=== PATIENT | male | born 1955 | race Caucasian/White ===

== ENCOUNTER 2019-11-28 14:31 | Emergency (ER) | payer MEDICARE, MEDICAID, SELFPAY ==
[2019-11-28 14:43] VITALS: BMI 25.0
--- NOTE | 2019-11-28 14:44 | XR_ITS ---
WS: [id number] XR hand RT min 3V* 44217 REASON FOR EXAM: PAIN/SWELLING FINDINGS: Degenerate changes of the distal interphalangeal joints are seen. There is no definite fractures identified involving the hand. There is soft tissue swelling. XR/XR hand RT min 3V* [id number] IMPRESSION: Soft tissue swelling of the hand Degenerate changes of the distal interphalangeal joints.
[2019-11-28 14:47] VITALS: BP 119/70; PULSE 102; RESP 18; TEMP 36.7; O2SAT 98
--- NOTE | 2019-11-28 14:50 | ED_ITS ---
Entered by Lisseth Casey, acting as scribe for Lizz Martin Nov 28, 2019 14:31 HPI - Extremity Problem General: Chief complaint: Extremity Injury, Upper Stated complaint: right hand swelling/pain Time Seen by Provider: 11/28/19 14:43 Source: patient and RN notes reviewed Mode of arrival: ambulatory Limitations: no limitations History of Present Illness: HPI Narrative: 64 yo male presents to ED with complaints of R index finger pain. The patient states he hyperextended his R index finger while lifting wire yesterday. He has pain and swelling at his 1st MCP joint. MD Complaint: extremity pain and extremity swelling Onset (ago): day(s) (1) Pain Consistency: constant Location: right (index finger) Quality: aching Radiation: none Relieving factors: nothing Exacerbating factors: range of motion Associated symptoms: Reports no associated symptoms; Deny chest pain, fever(s) or rash Review of Systems General: Reports: other (negative unless marked) Const: Denies: fever, chills, body aches, fatigue, malaise or diaphoresis Eyes: Denies: change in vision or blurry vision ENMT: Denies: throat pain, painful swallowing, hoarseness, ear pain, ear discharge, Change in hearing or nasal discharge Card: Denies: chest pain, palpitations, irregular heart rhythm, syncope, pre- syncope, shortness of breath on exertion or shortness of breath when lying down Resp: Denies: shortness of breath, productive cough, non-productive cough, wheezing, coughing up blood or chest congestion GI: Denies: abdominal pain, nausea, vomiting, vomiting blood, coffee grounds in vomit, diarrhea, constipation, cramping, blood in stool or black tarry stool : Denies: flank pain, difficulty urinating, painful urination, urinary frequency, urinary urgency, decreased urine ouput, urinary incontinence or blood in urine Musc: Denies: neck pain, back pain, joint swelling, joint warmth or joint stiffness Skin/Breast: Denies: rash, skin tenderness or yellow skin Neuro: Denies: headache, numbness in extremities, weakness in extremities, changes in sensation, lack of coordination, difficulty walking, dizziness, vertigo or confusion Endo: Denies: excessive thirst, tired all the time, cold intolerance, excessive sweating, flushing or hot flashes Manoj/Lymph: Denies: easy bruising, easy bleeding, petechiae or enlarged lymph nodes All/Imm: Denies: hives, throat swelling, tongue swelling, facial swelling or acute wheezing PFSH ED PFSH: Social History Smoking and tobacco status: former smoker Physical Exam Const: COMMON NORMALS: no apparent distress, oriented x3, no limitations, healthy appearing and well nourished EXAM LIMITATIONS: no altered mental status GENERAL APPEARANCE: cooperative, well kempt and well developed ORIENTATION/CONSCIOUSNESS: Yes awake HENMT: COMMON NORMALS: normocephalic, head/scalp atraumatic, hearing grossly normal bilaterally, external ears normal, EAC's normal, external nose normal and moist oral mucous membranes HEAD & SCALP: normal to inspection, normocephalic and atraumatic FACE & SINUS: normal facial exam and face symmetric NOSE: external nose normal and nares normal EXTERNAL EAR: Yes external ears normal EXTERNAL AUDITORY CANAL: EAC's normal MOUTH: oral and palatal mucosa normal and tongue normal Eye: COMMON NORMALS: PERRL, EOMs intact bilaterally, conjunctivae normal and no scleral icterus GENERAL EYE: normal appearance of both eyes and normal light reflex CONJUNCTIVA: Yes conjunctivae normal SCLERA: sclerae normal CORNEA: Yes corneas normal PUPIL: Yes PERRL DIRECT OPHTHALMOSCOPY: Yes normal light reflex Neck/C-Spine: COMMON NORMALS: full ROM, no lymphadenopathy, supple, no meningeal signs and no JVD GENERAL: Yes normal visual inspection and Yes trachea midline CERVICAL SPINE: Yes cervical ROM normal Chest: COMMONS NORMALS: inspection of chest normal and palpation of chest normal Resp: COMMON NORMALS: normal respiratory effort, no retractions, no use of accessory muscles and clear to auscultation bilaterally EFFORT & INSPECTION: Yes able to speak in complete sentences AUSCULTATION: clear to auscultation bilaterally Cardio: COMMON NORMALS: no JVD, regular rate, regular rhythm, S1 normal heart sound, S2 normal heart sound, no gallops, no clicks, no murmurs and no rub JUGULAR VENOUS DISTENTION: no JVD RATE: regular rate RHYTHM: regular rhythm HEART SOUNDS: S1 normal and S2 normal GI: COMMON NORMALS: soft to palpation, non-tender, no hepatosplenomegaly and no masses INSPECTION: Yes normal to inspection PALPATION: Yes soft and Yes no hepatosplenomegaly : COMMON NORMALS: Yes no CVA tenderness BLADDER/KIDNEY EXAM: Yes no CVA tenderness Back/Pelvis: COMMON NORMALS: no CVA tenderness, thoracic and lumbar spine normal to inspection, no thoracic nor lumbar tenderness and thoraco-lumbar ROM normal Extremity: COMMON NORMALS: normal to inspection, full ROM, normal capillary refill, no joint enlargement, no clubbing, cyanosis or edema and no calf tenderness RIGHT UPPER EXTREMITY: Yes hand & digits (pain and swelling at 1st MCP joint, no ligamentous or joint laxity or instability.) Neuro: COMMON NORMALS: oriented x3, CN's II-XII intact bilaterally, moves all extremities, no focal motor deficits and no sensory deficits noted MENINGEAL SIGNS: Yes no meningeal signs Psych: COMMON NORMALS: mental status grossly normal, thought process normal, cooperative, affect normal, speech normal and activity/motor behavior normal APPEARANCE: Yes well kempt SPEECH: Yes normal speech THOUGHT PROCESS: normal thought process Skin: COMMON NORMALS: no rashes or lesions noted, skin turgor normal, no az dice, no petechiae and no mottling GENERAL SKIN EXAM: no rashes or lesions noted and turgor normal Course Vital Signs: Vital signs: Vital Signs Temperature 98.0 F 11/28/19 14:47 Pulse Rate 76 11/28/19 15:27 Respiratory Rate 18 11/28/19 15:27 Blood Pressure 136/84 11/28/19 15:27 Pulse Oximetry 97 11/28/19 15:27 MDM - Extremity (Nontraumatic) MDM Narrative: Medical decision making narrative: Joni is a 64-year-old male who comes in after he injured his right hand. X-rays did not reveal any evidence of fracture, dislocation or avulsion fracture. He will follow-up with his doctor if pain persist but he states he just wanted to be certain he states is already feeling better but as the pain persisted that is what concerned him. Imaging Data^: Xray Ortho: My impression: Right hand -no acute fractures, dislocations or avulsions. Radiologist's impression: [address] [place] [address] XRay Report Signed Patient: Joni Juarez #: [id number] : 3Acct#:[id number] Age/Sex: 64 / MADM Date: 11/28/19 Loc: ERRoom/Bed: Attending Dr: Ordering Provider/Ordering MD: Lizz Martin DO Date of Service: 11/28/19 Procedure(s): XR hand RT min 3V* [id number] Accession Number(s): [id number] Report Number: [id number] WS: [id number] XR hand RT min 3V* [id number] REASON FOR EXAM: PAIN/SWELLING FINDINGS: Degenerate changes of the distal interphalangeal joints are seen. There is no definite fractures identified involving the hand. There is soft tissue swelling. XR/XR hand RT min 3V* [id number] IMPRESSION: Soft tissue swelling of the hand Degenerate changes of the distal interphalangeal joints. Dictated By:Jackson Magallon DO Signed By:Jackson Magallon DOSigned Date/Time:11/28/19 1459 DD/ Discharge Plan Discharge Patient Disposition: Home, Self-Care Clinical Impression: Finger sprain Qualifiers: Encounter type: initial encounter Finger: index finger Sprain of finger site: metacarpophalangeal joint Laterality: right Qualified Code(s): S63.650A - Sprain of metacarpophalangeal joint of right index finger, initial encounter Condition: Stable Prescriptions: No Action lisinopril 20 mg tablet 20 mg PO DAILY RF: 0 paroxetine HCl 20 mg tablet 20 mg PO DAILY RF: 0 naproxen 500 mg tablet 500 mg PO DAILY RF: 0 Discharge Orders: Discharge Order (Routine); Ordered 11/28/19 Ordered By: Lizz Martin Referrals: Joni Villagomez MD [Primary Care Provider] - 4-7 days Discharge Diet: Advance as tolerated Discharge Activity: Increase activity as tolerated Patient Instructions: Hand Sprain (ED) Activity Restrictions/Additional Instructions: Please return to the ER immediately for any of the signs or symptoms listed on your discharge instruction sheets, worsening/changing of your symptoms, you are not getting better as quickly as expected, or for ANY other cause or concerns. Take Tylenol and Motrin as needed at home for pain. Discharge Date/Time: 11/28/19 15:28 Coding Level of Care Code ED Primary Care Nurse for Chg Fwd Exam Comprehensive The documentation recorded by the scribeCarmela Valerie R, accurately reflects the service I personally performed and the decisions made by me, Lizz Martin Nov 28, 2019 14:31
[2019-11-28 15:27] VITALS: BP 136/84; PULSE 76; RESP 18; O2SAT 97
== END 2019-11-28 15:28 | disposition home or self-care (01) ==
PROVIDERS: Emergency Provider Emergency Medicine; Family Provider Family Medicine; PCP Family Medicine
DX: S63.641A Sprain of metacarpophalangeal joint of right thumb, initial encounter (principal); Z87.891 Personal history of nicotine dependence; X50.0XXA Overexertion from strenuous movement or load, initial encounter
CPT/HCPCS: 12345; 73130; 99281; 99282

== ENCOUNTER 2022-06-27 13:25 | Outpatient (CLI) | payer MEDICARE, MEDICAID, SELFPAY ==
--- NOTE | 2022-06-27 13:34 | USCV_ITS ---
LarryJoni Age: 67 Gender: M : 1955 Exam Date: 06/27/2022 14:10 Ordering Phys: Joni Villagomez MD Technologist: Al Ely Post Partum Nurse Exam Location: [facility] [place]_ Indication: cladication RIGHT LEFT Brachial 143.00 mmHg Brachial 157.00 mmHg Pressure (mmHg) Waveform Pressure (mmHg) Waveform 87.00 ASSOCIATE PROFESSOR OF MEDICINE 88.00 71.00 DPA 75.00 0.55 Ankle/Brachial Index 0.56 84.00 Pre-Exercise Toe Pressure 87.00 0.54 Pre-Exercise Toe/Brachial Index 0.55 FINDINGS Resting ASHWINI 0.56 on the left and 0.55 on the right Resting TBI of 0.54 on the right and 0.55 on the left CONCLUSIONS Abnormal resting ABIs and TBIs bilaterally, suggesting moderately severe peripheral arterial disease. Dr Rakan Singh MD [facility] (Electronically Signed) Final Date: 28 June 2022 20:40 S
== END 2022-06-27 13:26 | disposition home or self-care (01) ==
LOC: RAD 13:26
PROVIDERS: PCP Family Medicine; Visit Provider Family Medicine
DX: I73.9 Peripheral vascular disease, unspecified (principal)
CPT/HCPCS: 93922

== ENCOUNTER → 2022-09-06 12:04 | Outpatient (BNVA) | payer MEDICARE, MEDICAID, SELFPAY | PROVIDERS: PCP Family Medicine; Visit Provider Internal Medicine | DX: I73.9 Peripheral vascular disease, unspecified (principal); I10 Essential (primary) hypertension; Z87.891 Personal history of nicotine dependence | CPT/HCPCS: 99204 ==

== ENCOUNTER 2022-09-14 14:00 | Observation (INO) | payer MEDICARE, MEDICAID, SELFPAY ==
[2022-09-14] VITALS (18 sets, daily range): BP systolic 119–157; BP diastolic 66–91; PULSE 65–96; RESP 8–25; O2SAT 88–98; BMI 27.2
--- NOTE | 2022-09-14 06:00 | XACV_ITS ---
Ht: 170 cm Wt: 79 kg BSA: 1.95 m2 Gender: Male : 1955 Exam Type: Invasive Peripheral Vascular Procedure(s): Procedure Description: Peripheral Cath Diagnostic Procedure Procedure Description: Abdominal aortic angiography Exam Priority: Routine Abdominal Diagnostic Findings Distal abdominal aorta: Occluded with only collateral blood supply to the legs. Lower Extremity Diagnostic Findings INDICATION: Severe lifestyle limiting claudication. Significantly decreased ABIs. Right lower extremity findings: Right common iliac artery: Occluded. Right external iliac artery: Patent. Reconstitutes via collaterals. Right common femoral artery: Patent. Right profunda artery: Patent. Right SFA: Patent. Right popliteal artery: Patent. Right TP segment: Patent. Right anterior tibial artery: Patent. Right peroneal artery: Patent. Right posterior tibial artery: Patent.. Left lower extremity findings: Left common iliac artery: Occluded Left external iliac artery patent. Reconstitutes via collaterals. Left common femoral artery balloon. Left profunda artery: Patent Left SFA: Patent Left popliteal artery: Patent Left TP segment: Patent Imaging below the knee is limited however appears to have at least two-vessel runoff.. Conclusions Patient has totally occluded distal abdominal aorta and occluded bilateral common iliac arteries. Reconstitution of flow through collaterals. Recommendations We will refer patient to vascular surgery for endovascular versus open surgical revascularization procedure evaluation. Continue current medications. Outpatient follow-up in 4 weeks. Access Site Site: Right Femoral artery Sheath Size: 6 Fr Hemost... Method: Manual Compression Hemost... Success: Successful Site: Right Radial artery Sheath Size: 6 Fr Hemost... Method: TR Band Hemost... Success: Successful Procedure Details Findings Procedure Consent Obtained. Admit Source: Out Patient. Pre-Procedure Time Out. Identified patient by full name and date of as verbalized by the patient/guarantor. Does the consent match the physician's order: Yes. Accurate & Complete Informed Consent: Yes. Inpatient/Outpatient History & Physical on Chart: Yes. If H&P is completed, is and addenduem needed: No; If yes, is the addendum complete: N/A. Visualize and Verify Site with Patient/Guarantor: N/A. Relevant Radiology Images available: Yes. The risks, benefits, and alternatives of sedation and/or procedure were discussed by physician. The patient agrees to continue. Procedure started. Current diagnosis:Claudication/PVD. Physician notified. Baseline sample Acquired. HR: 68 BPM. bilateral groins was prepped with chloroprep then draped in the usual sterile fashion. PERRLA. Strong, equal hand underbaster bilaterally. Lungs clear x 5 lobes. Physician arrived. Physician scrubbed in. Time out performed with cath team. Lidocaine 1% infiltrated to the right groin. Ultrasound being used to assist in access. Arterial access obtained with micropuncture set. Microdialtor in. Hand injection through dialator. Glidewire in through microdilator. Microdialtor out. Seeker catheter in over wire. Seeker catheter out over glidewire. Seeker catheter in over wire. Glidewire out. Hand injection performed. Hand injection in DSA. Seeker out. Power injection through sheath in DSA. 5ml/sec for a total of 10 mls. Right leg arteriogram with runoff performed @ 10 mL/sec for a total of 30 mL. Hand injection through the sheath. right radial was prepped with chloroprep then draped in the usual sterile fashion. IV Site on Arrival: 20 gauge in the right anticubital. IV Fluids: 0.9% NaCl at KVO. 0 mL infused prior to clinical laboratory director. Pre Procedural Pulses: bilateral dorsalis pedis was Doppled. Pre Procedural Pulses: bilateral posterior tibial was Doppled. Pre Procedural Pulses: bilateral radial was 2+. Lidocaine 1% infiltrated to the right radial. Arterial access obtained. 125 cm 5Fr Pigtail catherter inserted over the standard wire. Abdominal aortogram performed in AP @ 10 mL/sec for a total of 30 mL. Catheter removed over the standard wire. A TR Band was successful obtaining hemostatsis at the Right Radial artery insertion site. A Manual Compression was successful obtaining hemostatsis at the Right Femoral artery insertion site. Post Procedure: Pulses reassessed and unchanged. PERRLA. Strong, equal hand underbaster bilaterally. No VTE prophylaxis required. Medication's Wasted: Nitro = 49.8 mg. Medication's Wasted: Lidocaine 1% = 1 mL. Medication's Wasted: Heparin = 1000 units. Total IV fluids: 73 mL. Post-op diagnosis: occluded distal abdominal aorta, occleded bilateral common illiacs. Complications: none. Estimated blood loss: 5mL-10mL. Responsiveness - Normal response to verbal stimuli; alert and oriented, PERRLA. Airway - Unaffected, no intervention required; spontaneous ventilation. Circulation: W/N/L, pulses unchanged. Nausea/Vomiting: No. Procedure completed. Patient transferred by bed to CPRU. Vital chart was stopped. Procedure Medications Start: 7:58 AM Stop: 7:58 AM Medication: Versed Amount: 1 mg Route: I.V. Start: 7:58 AM Stop: 7:58 AM Medication: Fentanyl Amount: 50 mcg Route: I.V. Start: 8:37 AM Stop: 8:37 AM Medication: Versed Amount: 1 mg Route: I.V. Start: 8:37 AM Stop: 8:37 AM Medication: Fentanyl Amount: 50 mcg Route: I.V. Start: 8:47 AM Stop: 8:47 AM Medication: Nitrogylcerin Amount: 200 mcg Route: I.A. I, the attending physician, have reviewed and verified all procedure medications. Yes, all medications given per verbal order History/Risk Factors Hypertension: Yes Dyslipidemia: No Peripheral Arterial Disease (PAD): Yes Obesity: No Tobacco Use: Former Prior Interventions PCI: No CABG: No Valve Surgery: No Report Signatures Finalized by Troy Matthew MD on 09/21/2022 09:53 AM
[2022-09-14] MEDS: diphenhydrAMINE 50 mg Capsule PO (06:27)
[2022-09-14 06:35] LABS: Basophils % 0.4 %; Eosinophils # 0.3 10^3/uL (0.0-0.8); Hematocrit 41.9 % (42.0-52.0); Hemoglobin 13.8 g/dL (11.7-16.6); Lymphocytes # 2.5 10^3/uL (0.8-4.8); Lymphocytes % 31.3 %; Mean Corpuscular HGB Conc 32.9 g/dL (30.0-36.0); Mean Corpuscular Hemoglobin 30.5 pg (28.0-34.0); Mean Corpuscular Volume 92.5 fl (80-94); Mean Platelet Volume 11.5 fL (7.4-10.4); Monocytes # 0.7 10^3/uL (0.2-0.9); Neutrophils # 4.36 10^3/uL (1.8-7.7); Nucleated Red Blood Cells % 0 %; Platelet Count 146 10^3/cmm (130-400); Red Blood Count 4.53 10^6/uL (4.1-5.3); Red Cell Distribution Width 13.2 % (12.1-15.1); White Blood Count 7.9 10^3/uL (4.0-10.0)
[2022-09-14 07:45] LABS: Anion Gap 19.9 (5-19); Blood Urea Nitrogen 21 mg/dL (8-23); Calcium 10.1 mg/dL (8.5-10.5); Carbon Dioxide 19 mmol/L (22-29); Chloride 105 mmol/L (98-107); Glomerular Filtration Rate 50.2 mL/min (90-130); Glucose 129 mg/dL (65-115); Osmolality Calculated 295 mOsm/kg (285-295); Potassium 3.9 mmol/L (3.5-5.1); Sodium 140 mmol/L (136-145)
--- NOTE | 2022-09-14 08:00 | W.PM.OPSUD ---
Surgery/Procedure H&P Update DATE OF PROCEDURE: September 14, 2022 DATE H&P PERFORMED: 09/06/22 H&P UPDATE INFORMATION: I have reviewed H&P completed within last 30 days, I have examined patient prior to procedure and No changes to prior documentation PREOP DIAGNOSIS: Lifestyle limiting claudication PRIMARY INDICATION FOR PROCEDURE: Lifestyle limiting claudication PLANNED PROCEDURE: Operation Date: 09/14/22 07:00 Proposed Procedures p perip angiogram 27306,I73.9(Not Applicable) - Troy Matthew M.D Possible percutaneous coronary intervention PATIENT REASSESSED PRIOR TO SEDATION, WITH NO CHANGE NOTED: Yes PHYSICAL EXAM: alert, oriented x 3, clear to auscultation bilaterally and regular rate & rhythm AIRWAY EVAL/ANESTHESIA PLAN: normal airway, ASA III, Local Anesthesia, Risks, benefits & alternatives of sedation and/or procedure discussed and Patient agrees to continue as planned ADDITIONAL INFORMATION: Moderate sedation
--- NOTE | 2022-09-14 11:00 | PC.NURSE ---
Around 1100: Removed TR Band from patients right wrist. No drainage or hematoma noted. Cleaned around puncture site with soap and water, covered puncture site with band-aid. Vitals stable. No c/o of pain or discomfort. Dsg to patients right groin clean, dry, et intact. No drainage or hematoma noted. All needs met, will continue to monitor.
== END 2022-09-14 15:43 | disposition home or self-care (01) ==
LOC: CSU 14:04
PROVIDERS: Admitting Provider Internal Medicine; PCP Family Medicine; Visit Provider Internal Medicine
DX: I73.9 Peripheral vascular disease, unspecified (principal); I74.09 Other arterial embolism and thrombosis of abdominal aorta; I74.5 Embolism and thrombosis of iliac artery; I10 Essential (primary) hypertension; Z87.891 Personal history of nicotine dependence
CPT/HCPCS: 36415; 75625; 75716; 80048; 85025; 96360; 99152; 99153; C1769; C1887; C1894; G0378; J1644; J2250; J3010; J3490; J7030; Q0163; Q9967

== ENCOUNTER 2023-03-01 13:35 | Emergency (ER) | payer MEDICARE, MEDICAID, SELFPAY ==
[2023-03-01 13:36] VITALS: BMI 25.8
[2023-03-01 13:42] VITALS: BP 123/73; PULSE 111; RESP 16; TEMP 36.7; O2SAT 98
--- NOTE | 2023-03-01 13:49 | CT_ITS ---
WS: [id number] CTA ABDOMINAL AORTA WITH RUNOFF TECHNIQUE: Contrast enhanced CTA of the abdominal aorta with bilateral lower extremity runoff. Multip lanar reformatted images were obtained. MIP reformats were also reviewed. CLINICAL INFORMATION: aortic graft - abd pain radiating into back COMPARISON: None. DLP: 564.[address] scans at [facility] use at least one of these dose optimization techniques: automated e xposure control; mA and/or kV adjustment per patient size (includes targeted exams where dose is matc hed to clinical indication); or iterative reconstruction. FINDINGS: Complete occlusion of the infrarenal abdominal aortic graft just below the takeoff of the r enal arteries. Chronic atrophy of the LEFT kidney. RIGHT renal artery appears patent. Normal RIGHT re nal enhancement. Celiac and SMA are patent. Recent postoperative changes reported aortofemoral bypass graft. Graft is occluded at the origin. Occlusion of both bypass limbs. [place] aorta is occluded. Small fluid collect ion along the inferior margin of the bypass graft at the L5 level likely postoperative. Residual flow in both lower extremities due to collateral reconstitution. Collateral flow involving t he inferior epigastric and iliolumbar collaterals. Prominent vascularity in the mid mesentery due to mesenteric collaterals. Lung bases are well aerated. Diffuse heterogeneous liver enhancement. Portal vein and splenic vein appear patent. Common bile duct dilatation measuring 9.3 mm. Mild intrahepatic biliary ductal dilatation. Mild pancreatic ductal dilatation. Pancreatic Calcifications. Low-attenuation lesion in the pancreas measuring 13 mm. Differential consi derations include pancreatic pseudocyst versus neoplasm. This can be further evaluated with MRCP, ERC P, or endoscopic ultrasound. Normal GE junction. Bilateral THAs degrade images in the pelvis. RIGHT: Reconstitution via collaterals distal external iliac/ common femoral artery. Deep femoral alesha ry is patent. Small superficial femoral artery and tiny popliteal arteries are patent. Tiny calf alesha maia appear patent with three-vessel runoff. LEFT: Reconstitution via collaterals distal external iliac artery and common femoral artery. Superfic ial femoral artery is patent. Deep femoral artery is patent. Small SFA remains patent. Tiny popliteal artery is patent. Three-vessel runoff with tiny arteries in the calf. CT/CT angio abd aorta runof [id number] IMPRESSION: Images degraded in the pelvis due to bilateral THAs 1. Infrarenal abdominal aortic graft is occluded just below the renal artery t akeoff. Shawnee aorta and bypass grafts are completely occluded. 2. Tiny atrophic LEFT kidney. RIGHT renal artery is patent just above the occl usion with normal RIGHT renal parenchymal enhancement. 3. Celiac and SMA are patent. 4. External iliac artery/common femoral arteries reconstitute via collaterals in both lower extremities with patent vessels and in-line flow although diminut eugenia in size. Tiny calf arteries with three-vessel runoff. 5. Pancreatic calcifications likely due to chronic pancreatitis. Mild ductal d ilatation 6. Low-attenuation mass in the pancreatic head measuring 13 mm with mild comm on bile duct dilatation. Differential considerations include pseudocyst versus neoplasm including serous and mucinous cystic neoplasm. This can be further radha luated MRCP, ERCP, or endoscopic ultrasound. 7. Mild intrahepatic biliary duct dilatation. 8. Prominent prostate measuring 4.3 CM. Recommend correlation PSA. 9. Additional nonvascular findings described above. Notified Orlando Lim DO at 03/01/2023 4:33 PM.
--- NOTE | 2023-03-01 13:51 | W.ED.ABDPA2 ---
HPI - Abdominal Pain General: Chief Complaint: Abdominal Pain Stated Complaint: abdominal pain Time Seen by Provider: 03/01/23 13:40 Source: patient Mode of arrival: EMS History of Present Illness: 67-year-old male who is 1 month status post aortofemoral bypass comes in complaining of periumbilical pain for the last 4 days progressively worsening radiating into his back. Patient reports that prior to his aortofemoral bypass he had severe intermittent claudication postop claudication symptoms in his lower legs have improved but in his thighs he continues to have pain. He has pain even while at rest at times. He denies chest pain or shortness of breath no vomiting or diarrhea no dysuria urgency or frequency. He is on Pletal postoperatively as well as pravastatin. Patient is a former smoker he quit over a decade ago. MD elicited complaint: abdominal pain Pertinent past history: other (1 month status post aorto femoral bypass) Onset (ago): day(s) (4) Pain Consistency: constant Location: Periumbilical Severity: moderate Quality: aching Radiation: back Exacerbating factors: nothing Relieving factors: nothing Associated Symptoms: Denies anorexia, belching, bloating, change in bowel habits, change in stool character, chills, coffee ground emesis, constipation, GI cramping, diarrhea, dyspepsia, dysuria, excessive flatus, fever(s), heartburn, hematochezia, hematuria, hematemesis, fecal incontinence, loose stools, melena, nausea, poor appetite, syncope and vomiting Review of Systems Const: Denies: fever(s) or chills ENMT: Denies: throat pain, ear or mastoid pain, nasal discharge or nasal congestion Card: Denies: syncope Resp: Denies: dyspnea, productive cough or non-productive cough GI: Denies: nausea, vomiting, hematemesis, coffee ground emesis, heartburn, diarrhea, constipation, bloating, GI cramping, belching, excessive flatus, fecal incontinence, change in bowel habits, change in stool character, hematochezia or melena : Denies: dysuria or hematuria Skin/Breast: Denies: rash or pruritus PFSH ED PFSH: Medical History Hypertension PVD (peripheral vascular disease) Family History Mother Cancer Father Cancer Sister Cancer Social History Smoking and tobacco status: former smoker Alcohol intake: never Substance/Drug Use: never Physical Exam Const: COMMON NORMALS: no acute distress GENERAL APPEARANCE: cooperative and comfortable ORIENTATION/CONSCIOUSNESS: Yes awake, Yes oriented to person, Yes oriented to place and Yes oriented to time HENMT: COMMON NORMALS: normocephalic, atraumatic and hearing grossly normal bilaterally HEAD & SCALP: normocephalic and atraumatic Resp: COMMON NORMALS: normal respiratory effort, No retractions, No use of accessory muscles and clear to auscultation bilaterally AUSCULTATION: clear to auscultation bilaterally Cardio: COMMON NORMALS: regular rate, regular rhythm and No murmurs present (Cardio) RATE: regular rate RHYTHM: regular rhythm GI: COMMON NORMALS: Soft to palpation and No hepatosplenomegaly present AUSCULTATION: Yes normoactive bowel sounds PALPATION: Yes Soft to palpation, No Tenderness to palpation present (GI), No Guarding due to palpation present (GI) and Yes No hepatosplenomegaly present Extremity: COMMON NORMALS: normal to inspection, capillary refill normal, no clubbing, cyanosis or edema, no calf tenderness and no pedal edema OTHER: No palpable femoral pulses Neuro: SENSORIUM/ORIENTATION: Yes oriented to person, Yes oriented to place and Yes oriented to time Skin: COMMON NORMALS: no rashes or lesions noted GENERAL SKIN EXAM: no rashes or lesions noted Course Vital Signs: Vital signs: Vital Signs Temperature 98.0 F 03/01/23 13:42 Pulse Rate 111 H 03/01/23 17:00 Respiratory Rate 16 03/01/23 13:42 Blood Pressure 103/63 03/01/23 17:00 Pulse Oximetry 99 03/01/23 17:00 Oxygen Delivery Me thod Room Air 03/01/23 13:42 MDM - Abdominal Pain Medical Decision Making 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 He has reconstituted flow from collaterals. We initially heparinized patient contacted Dr. Echeverria who is a surgeon who performed the procedure at [facility] in [place]. He advised basically the patient is reverted to his preoperative state. He did not advise transfer at this time also since patient did not have severe pain did not feel that the heparin was needed and advises to continue the Pletal. He will see the patient next week in the office. Reviewed findings with the patient. He does have some mild anemia but otherwise no other significant finding is does not have acute abdominal findings on exam. He is lipase is elevated however he has no left upper quadrant pain there is a syndrome of mass in the pancreas and dilation of common bile duct however he does not have any right upper quadrant pain and he is normal liver functions and T. bili. Follow-up with his primary care doctor regarding the other miscellaneous CT findings does not appear to be acute emergent problem, suspect pseudocyst we will discharge the patient home have him follow-up with vascular surgery next week return if he has further problems. Medical Records I reviewed the patient's medical records. Lab Data I reviewed the patient's lab results. 03/01/23 13:45 03/01/23 13:45 Labs/Radiology: Radiology Impressions Aorta w/Runoff CTA 03/01/23 13:49 IMPRESSION: Images degraded in the pelvis due to bilateral THAs 1. Infrarenal abdominal aortic graft is occluded just below the renal artery takeoff. Circle aorta and bypass grafts are completely occluded. 2. Tiny atrophic LEFT kidney. RIGHT renal artery is patent just above the occlusion with normal RIGHT renal parenchymal enhancement. 3. Celiac and SMA are patent. 4. External iliac artery/common femoral arteries reconstitute via collaterals in both lower extremities with patent vessels and in-line flow although diminutive in size. Tiny calf arteries with three-vessel runoff. 5. Pancreatic calcifications likely due to chronic pancreatitis. Mild ductal dilatation 6. Low-attenuation mass in the pancreatic head measuring 13 mm with mild common bile duct dilatation. Differential considerations include pseudocyst versus neoplasm including serous and mucinous cystic neoplasm. This can be further evaluated MRCP, ERCP, or endoscopic ultrasound. 7. Mild intrahepatic biliary duct dilatation. 8. Prominent prostate measuring 4.3 CM. Recommend correlation PSA. 9. Additional nonvascular findings described above. Notified Orlando Lim DO at 03/01/2023 4:33 PM. Laboratory Results WBC 10.8 10^3/uL (4.0-10.0) H 03/01/23 13:45 RBC 3.89 10^6/uL (4.1-5.3) L 03/01/23 13:45 Hgb 11.5 g/dL (11.7-16.6) L 03/01/23 13:45 Hct 36.4 % (42.0-52.0) L 03/01/23 13:45 MCV 93.6 fl (80-94) 03/01/23 13:45 MCH 29.6 pg (28.0-34.0) 03/01/23 13:45 MCHC 31.6 g/dL (30.0-36.0) 03/01/23 13:45 RDW 13.4 % (12.1-15.1) 03/01/23 13:45 Plt Count 140 10^3/cmm (130-400) 03/01/23 13:45 MPV 11.0 fL (7.4-10.4) H 03/01/23 13:45 Neut % (Auto) 81.2 % 03/01/23 13:45 Lymph % (Auto) 9.5 % 03/01/23 13:45 [place] % (Auto) 7.5 % 03/01/23 13:45 Eos % (Auto) 1.3 % 03/01/23 13:45 Baso % (Auto) 0.2 % 03/01/23 13:45 Neut # (Auto) 8.81 10^3/uL (1.8-7.7) H 03/01/23 13:45 Lymph # (Auto) 1.0 10^3/uL (0.8-4.8) 03/01/23 13:45 [place] # (Auto) 0.8 10^3/uL (0.2-0.9) 03/01/23 13:45 Eos # (Auto) 0.1 10^3/uL (0.0-0.8) 03/01/23 13:45 Baso # (Auto) 0.0 10^3/uL (0.0-0.1) 03/01/23 13:45 Nucleated RBC % (auto) 0 % 03/01/23 13:45 Nucleated RBCs # 0.0 /100WBC 03/01/23 13:45 PT 13.50 SECONDS (12.1-14.9) 03/01/23 13:45 INR 1.00 (0.8-1.2) 03/01/23 13:45 APTT 25.8 SECONDS (23.9-36.7) 03/01/23 13:45 Sodium 136 mmol/L (136-145) 03/01/23 13:45 Potassium 4.7 mmol/L (3.5-5.1) 03/01/23 13:45 Chloride 103 mmol/L (98-107) 03/01/23 13:45 Carbon Dioxide 20 mmol/L (22-29) L 03/01/23 13:45 Anion Gap 17.7 (5-19) 03/01/23 13:45 BUN 20 mg/dL (8-23) 03/01/23 13:45 Creatinine 1.0 mg/dL (0.7-1.2) 03/01/23 13:45 GFR Calculation 74.1 mL/min (90-130) L 03/01/23 13:45 Glucose 117 mg/dL (65-115) H 03/01/23 13:45 Calculated Osmolality 286 mOsm/kg (285-295) 03/01/23 13:45 Calcium 9.7 mg/dL (8.5-10.5) 03/01/23 13:45 Total Bilirubin 0.4 mg/dL (0.15-1.2) 03/01/23 13:45 AST 26 U/L (0-40) 03/01/23 13:45 ALT 24 U/L (0-41) 03/01/23 13:45 Alkaline Phosphatase 119 U/L (40-130) 03/01/23 13:45 Total Protein 7.8 g/dL (6.6-8.7) 03/01/23 13:45 Albumin 4.2 g/dL (3.5-5.2) 03/01/23 13:45 Globulin 3.6 g/dL (1.3-4.6) 03/01/23 13:45 Lipase 202 U/L (13-60) H 03/01/23 13:45 Urine Color Yellow (Yellow) 03/01/23 17:00 Urine Appearance Clear (CLEAR) 03/01/23 17:00 Urine pH 6 (5-7) 03/01/23 17:00 Ur Specific [place] 1.010 (1.005-1.030) 03/01/23 17:00 Urine Protein Neg (Negative) 03/01/23 17:00 Urine Glucose (UA) Norm (Normal) 03/01/23 17:00 Urine Ketones Negative (Negative) 03/01/23 17:00 Urine Blood Neg (Negative) 03/01/23 17:00 Urine Nitrate Negative (Negative) 03/01/23 17:00 Urine Bilirubin Neg (Negative) 03/01/23 17:00 Urine Urobilinogen Neg mg/dL (Negative) 03/01/23 17:00 Ur Leukocyte Esterase Negative (Negative) 03/01/23 17:00 Discharge Plan Discharge Patient Disposition: Home Clinical Impression: Vascular graft occlusion Condition: Stable Prescriptions: No Action cilostazol 50 mg tablet 50 mg PO BID Qty: 180 3RF lisinopril 20 mg tablet 20 mg PO DAILY paroxetine HCl 20 mg tablet 20 mg PO DAILY naproxen 500 mg tablet 500 mg PO DAILY pravastatin 40 mg tablet 40 mg PO DAILY oxycodone-acetaminophen 5-325 mg tablet 1 tab PO Q6H Discharge Orders: Discharge ED (Routine); Ordered 03/01/23 Ordered By: Orlando Lim Referrals: Joni Villagomez MD [Primary Care Provider] - Discharge Diet: Usual diet Discharge Activity: Limit activity as instructed Patient Instructions: Opioid Safety, Pain Management Activity Restrictions/Additional Instructions: You were seen today for abdominal and leg pain. Your aortofemoral bypass graft has occluded. I discussed with your surgeon from [place] contact his office as soon as you are able and he will make arrangements for follow-up and discuss options for you. Avoid exertion. Minimize activity. Continue previously prescribed medications. Coding Level of Care Code ED Welding Process Specialist for Felipa Nugent
--- NOTE | 2023-03-01 13:55 | ECG_ITS ---
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 Measurements Intervals [place] Rate: 106 P: 79 NM: 169 QRS: 61 QRSD: 80 T: 47 QT: 305 QTc: 405 Interpretive Statements SINUS TACHYCARDIA No previous ECG available for comparison Electronically Signed On 03-01-2023 17:04:04 CDT by Tory Matthew M.D. [email or web address]
[2023-03-01 14:05] LABS: Basophils % 0.2 %; Eosinophils # 0.1 10^3/uL (0.0-0.8); Eosinophils % 1.3 %; Hematocrit 36.4 % (42.0-52.0); Hemoglobin 11.5 g/dL (11.7-16.6); Lymphocytes % 9.5 %; Mean Corpuscular HGB Conc 31.6 g/dL (30.0-36.0); Mean Corpuscular Hemoglobin 29.6 pg (28.0-34.0); Mean Corpuscular Volume 93.6 fl (80-94); Monocytes # 0.8 10^3/uL (0.2-0.9); Monocytes % 7.5 %; Neutrophils # 8.81 10^3/uL (1.8-7.7); Neutrophils % 81.2 %; Nucleated Red Blood Cells % 0 %; Platelet Count 140 10^3/cmm (130-400); Red Blood Count 3.89 10^6/uL (4.1-5.3); Red Cell Distribution Width 13.4 % (12.1-15.1); White Blood Count 10.8 10^3/uL (4.0-10.0)
[2023-03-01 14:14] VITALS: BP 101/64; PULSE 117; O2SAT 97
[2023-03-01 14:22] LABS: Alanine Aminotransferase 24 U/L (0-41); Albumin Level 4.2 g/dL (3.5-5.2); Alkaline Phosphatase 119 U/L (40-130); Anion Gap 17.7 (5-19); Aspartate Amino Transferase 26 U/L (0-40); Blood Urea Nitrogen 20 mg/dL (8-23); Calcium 9.7 mg/dL (8.5-10.5); Carbon Dioxide 20 mmol/L (22-29); Chloride 103 mmol/L (98-107); Globulin 3.6 g/dL (1.3-4.6); Glomerular Filtration Rate 74.1 mL/min (90-130); Glucose 117 mg/dL (65-115); Lipase 202 U/L (13-60); Osmolality Calculated 286 mOsm/kg (285-295); Potassium 4.7 mmol/L (3.5-5.1); Sodium 136 mmol/L (136-145); Total Bilirubin 0.4 mg/dL (0.15-1.2); Total Protein 7.8 g/dL (6.6-8.7)
[2023-03-01 14:55] VITALS: BP 92/52; PULSE 104; O2SAT 97
[2023-03-01 15:35] VITALS: BP 99/57; PULSE 94; O2SAT 95
[2023-03-01] MEDS: ondansetron 2 mg/ML SDV 2 mL 4 MG IVP (15:50)
[2023-03-01] MEDS: morphine 4 mg/mL SDV 1 mL IVP (15:50)
[2023-03-01] MEDS: sodium chloride 0.9% 1,000 ML 999 ML IV (15:54)
[2023-03-01 16:03] VITALS: BP 96/59; PULSE 90; O2SAT 92
[2023-03-01] MEDS: heparin 5,000 unit/mL INJ 1 mL IV (16:50)
[2023-03-01 16:51] LABS: Partial Thromboplastin Time 25.8 SECONDS (23.9-36.7)
[2023-03-01] MEDS: heparin drip 25,000 UNIT/500 ML PREMIX 31.43 UNIT IV (16:52)
[2023-03-01 17:00] VITALS: BP 103/63; PULSE 111; O2SAT 99
[2023-03-01 17:26] LABS: Add Urine Microscopic? NO; Charge for UA Resulting for Rev
[2023-03-01 17:37] LABS: Bilirubin Urine Neg (Negative); Blood Urine Neg (Negative); Glucose Urine UA Norm (Normal); Ketones Urine Negative (Negative); Leukocyte Esterase Urine Negative (Negative); Nitrate Urine Negative (Negative); Protein Urine Neg (Negative); Urine Appearance Clear (CLEAR); Urine Color Yellow (Yellow); Urobilinogen Urine Neg (Negative); pH Urine 6 (5-7)
== END 2023-03-01 17:58 | disposition home or self-care (01) ==
PROVIDERS: Emergency Provider Family Medicine; PCP Family Medicine
DX: T82.898A Other specified complication of vascular prosthetic devices, implants and grafts, initial encounter (principal); Y83.2 Surgical operation with anastomosis, bypass or graft as the cause of abnormal reaction of the patient, or of later complication, without mention of misadventure at the time of the procedure; I10 Essential (primary) hypertension; I73.9 Peripheral vascular disease, unspecified
CPT/HCPCS: 75635; 80053; 81003; 83690; 85025; 85610; 85730; 93005; 96361; 96374; 96375; 99285; J1644; J2270; J2405; J7030

== ENCOUNTER 2023-03-15 19:59 | Emergency (ER) | payer MEDICARE, MEDICAID, SELFPAY ==
[2023-03-15] VITALS (8 sets, daily range): BP systolic 113–160; BP diastolic 52–80; PULSE 118–139; RESP 16–100; TEMP 36.6–37.7; O2SAT 16–100; BMI 24.4
--- NOTE | 2023-03-15 20:33 | ED_ITS ---
Documented by User: MACIEL Joshua 03/16/23 00:27 HPI - Abdominal Pain General: Chief Complaint: Abdominal Pain Stated Complaint: SOB\Cant Poop\Testicals Swollen Time Seen by Provider: 03/15/23 20:19 Source: patient Mode of arrival: ambulatory Limitations: no limitations History of Present Illness: Patient is a 67-year-old male with a history of an aortofemoral graft bypass failure here for complaints of abdominal pain. Patient states approximately 4 days ago he underwent right subclavian bifemoral graft. He has incisions to R subclavian region, R lateral chest wall, and bilateral groins. He states legs are feeling much better but he is concerned in regards to his abdominal pain. He states pain is periumbilical and RUQ with pain wrapping around to his back. He is reporting constipation and states he just does not feel well. Low grade fevers and tachycardia noted in triage. No vomiting. MD elicited complaint: abdominal pain Onset (ago): day(s) Pain Consistency: constant Location: Diffuse Severity: severe Quality: cramping and fullness Radiation: none Migration to: no migration Relieving factors: nothing Associated Symptoms: Reports constipation; Denies chills, dysuria, fever(s), nausea and vomiting Review of Systems Const: Denies: fever(s), chills, body aches, fatigue or malaise Card: Denies: chest pain Resp: Denies: dyspnea GI: Reports: abdominal pain and constipation; Denies: nausea or vomiting : Reports: scrotal swelling (scrotal/penile swelling-recent femoral access ); Denies: flank pain or dysuria Musc: Denies: neck pain, back pain, extremity pain, extremity swelling, joint pain or joint swelling Neuro: Denies: headache(s), numbness in extremities, weakness in extremities or sensory changes PFSH ED PFSH: Medical History Hypertension PVD (peripheral vascular disease) Family History Mother Cancer Father Cancer Sister Cancer Social History Smoking and tobacco status: former smoker Alcohol intake: never Substance/Drug Use: never Physical Exam Const: COMMON NORMALS: no acute distress, average body habitus, patient oriented x3, no limitations, healthy appearing, alert and well nourished GENERAL APPEARANCE: cooperative ORIENTATION/CONSCIOUSNESS: Yes awake, Yes oriented to person, Yes oriented to place and Yes oriented to time HENMT: COMMON NORMALS: normocephalic and atraumatic HEAD & SCALP: normal to inspection, normocephalic and atraumatic Eye: COMMON NORMALS: no scleral icterus Chest: COMMONS NORMALS: normal palpation of entire chest wall OTHER: surgical incisions to R subclavian region and R lateral chest incision look clean Resp: COMMON NORMALS: normal respiratory effort and clear to auscultation bilaterally AUSCULTATION: clear to auscultation bilaterally Cardio: COMMON NORMALS: regular rhythm RATE: tachycardic RHYTHM: regular rhythm GI: COMMON NORMALS: Normal to inspection, nondistended, normoactive bowel sounds present, Soft to palpation and no masses INSPECTION: Yes scar AUSCULTATION: Yes normoactive bowel sounds PALPATION: Yes Soft to palpation, Yes Tenderness to palpation present (GI) (mid abdomen, RUQ radiating to back), Yes Guarding due to palpation present (GI) and No Rigid due to palpation : COMMON NORMALS: Yes no CVA tenderness BLADDER/KIDNEY EXAM: Yes no CVA tenderness OTHER: edematous penis with ecchymosis most likely from recent bilateral femoral access; wounds to bilateral groins appear clean/infection free Back/Pelvis: COMMON NORMALS: no CVA tenderness, thoracic and lumbar spine normal to inspection, no thoracic nor lumbar tenderness and thoraco-lumbar ROM normal Extremity: COMMON NORMALS: normal to inspection and capillary refill normal NARRATIVE EXTREMITY EXAM: bilateral LEs are warm to the touch with palpable DP/PT pulses GENERAL: Yes normal exam except as noted Neuro: COMMON NORMALS: patient oriented x3, moves all extremities, no focal motor deficits and no sensory deficits noted SENSORIUM/ORIENTATION: Yes alert, Yes oriented to person, Yes oriented to place and Yes oriented to time Course Vital Signs: Vital signs: Vital Signs Temperature 99.9 F H 03/15/23 20:51 Pulse Rate 103 H 03/16/23 05:26 Respiratory Rate 13 03/16/23 05:26 Blood Pressure 125/69 03/16/23 05:26 Pulse Oximetry 100 03/16/23 05:26 Oxygen Delivery Me thod Room Air 03/16/23 04:13 MDM - Abdominal Pain Lab Data 03/15/23 20:36 03/15/23 20:36 Labs/Radiology: Radiology Impressions Chest/Abdomen/Pelvis CTA 03/15/23 20:48 IMPRESSION: 1. Status post recent right subclavian femoral and bifemoral bypass graft are patent. 2. Stable status post surgical changes of aortofemoral bypass graft with occlusion noted at the origin as well as both bypass limbs, no change. The chip[place]ree aorta is also occluded, no change. Small fluid collection noted along the inferior margin of the bypass graft at L5, no change allowing for differences in technique. 3. Redemonstration of gallbladder distention with intrahepatic and extrahepatic biliary ductal dilation. 4. Increased size in the cystic mass the pancreatic head measuring 3.5 x 3.6 cm probably representing a pseudocyst. There is mild peripancreatic stranding, correlate with pancreatic enzymes to exclude acute pancreatitis. Follow-up after treatment is recommended to document resolution and exclude cystic neoplasm. ADDENDUM: 03/15/23 2256 Correction to section on ( reproductive): Enlarged prostate gland, correlate with PSA. Cholangiopancreatography MRI 03/16/23 12:01 IMPRESSION: Pancreatic head mass consistent with a probable primary carcinoma. Atrophic left kidney. Gynecomastia. Surgical incision along the anterior abdominal wall. No evidence of abscess. Laboratory Results WBC 11.5 10^3/uL (4.0-10.0) H 03/15/23 20:36 RBC 2.98 10^6/uL (4.1-5.3) L 03/15/23 20:36 Hgb 8.7 g/dL (11.7-16.6) L 03/15/23 20:36 Hct 27.1 % (42.0-52.0) L 03/15/23 20:36 MCV 90.9 fl (80-94) 03/15/23 20:36 MCH 29.2 pg (28.0-34.0) 03/15/23 20:36 MCHC 32.1 g/dL (30.0-36.0) 03/15/23 20:36 RDW 13.0 % (12.1-15.1) 03/15/23 20:36 Plt Count 158 10^3/cmm (130-400) 03/15/23 20:36 MPV 11.1 fL (7.4-10.4) H 03/15/23 20:36 Neut % (Auto) 77.5 % 03/15/23 20:36 Lymph % (Auto) 9.6 % 03/15/23 20:36 [place] % (Auto) 11.9 % 03/15/23 20:36 Eos % (Auto) 0.5 % 03/15/23 20:36 Baso % (Auto) 0.2 % 03/15/23 20:36 Neut # (Auto) 8.89 10^3/uL (1.8-7.7) H 03/15/23 20:36 Lymph # (Auto) 1.1 10^3/uL (0.8-4.8) 03/15/23 20:36 [place] # (Auto) 1.4 10^3/uL (0.2-0.9) H 03/15/23 20:36 Eos # (Auto) 0.1 10^3/uL (0.0-0.8) 03/15/23 20:36 Baso # (Auto) 0.0 10^3/uL (0.0-0.1) 03/15/23 20:36 Nucleated RBC % (auto) 0 % 03/15/23 20:36 Nucleated RBCs # 0.0 /100WBC 03/15/23 20:36 Sodium 130 mmol/L (136-145) L 03/15/23 20:36 Potassium 4.6 mmol/L (3.5-5.1) 03/15/23 20:36 Chloride 95 mmol/L (98-107) L 03/15/23 20:36 Carbon Dioxide 22 mmol/L (22-29) 03/15/23 20:36 Anion Gap 17.6 (5-19) 03/15/23 20:36 BUN 23 mg/dL (8-23) 03/15/23 20:36 Creatinine 1.2 mg/dL (0.7-1.2) 03/15/23 20:36 GFR Calculation 60.0 mL/min (90-130) L 03/15/23 20:36 Glucose 164 mg/dL (65-115) H 03/15/23 20:36 Calculated Osmolality 277 mOsm/kg (285-295) L 03/15/23 20:36 Lactic Acid 2.2 mmol/L (0.5-2.2) 03/15/23 20:36 Lactic Acid (Sepsis) 1.7 mmol/L (0.5-2.2) 03/15/23 22:40 Calcium 9.0 mg/dL (8.5-10.5) 03/15/23 20:36 Total Bilirubin 1.4 mg/dL (0.15-1.2) H 03/15/23 20:36 AST 166 U/L (0-40) H 03/15/23 20:36 ALT 84 U/L (0-41) H 03/15/23 20:36 Alkaline Phosphatase 570 U/L (40-130) H 03/15/23 20:36 Total Protein 6.9 g/dL (6.6-8.7) 03/15/23 20:36 Albumin 3.3 g/dL (3.5-5.2) L 03/15/23 20:36 Globulin 3.6 g/dL (1.3-4.6) 03/15/23 20:36 Lipase 56 U/L (13-60) 03/15/23 20:36 Urine Color Yellow (Yellow) 03/15/23 21:15 Urine Appearance Clear (CLEAR) 03/15/23 21:15 Urine pH 7 (5-7) 03/15/23 21:15 Ur Specific [place] 1.005 (1.005-1.030) 03/15/23 21:15 Urine Protein Neg (Negative) 03/15/23 21:15 Urine Glucose (UA) Norm (Normal) 03/15/23 21:15 Urine Ketones Negative (Negative) 03/15/23 21:15 Urine Blood Neg (Negative) 03/15/23 21:15 Urine Nitrate Negative (Negative) 03/15/23 21:15 Urine Bilirubin Neg (Negative) 03/15/23 21:15 Urine Urobilinogen 1 mg/dL (Negative) H 03/15/23 21:15 Ur Leukocyte Esterase Negative (Negative) 03/15/23 21:15 Discharge Plan Discharge Patient Disposition: Home Clinical Impression: Cystic mass of pancreas, Acquired hyperbilirubinemia Condition: Stable Prescriptions: New morphine 15 mg tablet 15 mg PO Q6H PRN (Reason: pain) Qty: 10 0RF Discontinued oxycodone-acetaminophen 5-325 mg tablet 1 tab PO Q6H No Action cilostazol 50 mg tablet 50 mg PO BID Qty: 180 3RF lisinopril 20 mg tablet 20 mg PO DAILY paroxetine HCl 20 mg tablet 20 mg PO DAILY naproxen 500 mg tablet 500 mg PO DAILY pravastatin 40 mg tablet 40 mg PO DAILY Discharge Orders: Discharge ED (Routine); Ordered 03/16/23 Ordered By: Renato Urbano Referrals: Joni Villagomez MD [Primary Care Provider] - 1-3 days Patient Instructions: Biliary Colic (ED), Jaundice (ED), Opioid Safety, Pain Management Activity Restrictions/Additional Instructions: A medical case manager from the [facility] will call you regarding a follow- up appointment this coming week. If you do not hear from them, give them a call. Their number is as follows: [facility] * [address] [place] [address], [address],?[place],?[place]?[address] * Phone:[phone] tel:[phone] * Fax:?[phone] tel:[phone] You should have your liver enzymes rechecked as an outpatient on Saturday to make sure they are not increasing. Return for fever greater than 100, vomiting liquids or medications, worsening pain despite treatment, yellowing of the eyes, any other concerning symptoms. Coding Level of Care Code ED Waste Minimization Technician for Chg Fwd Documented by User: Renato Urbano, 03/16/23 15:21 HPI - Abdominal Pain 2 General: Chief Complaint: Abdominal Pain Stated Complaint: SOB\Cant Poop\Testicals Swollen Time Seen by Provider: 03/15/23 20:19 PFSH ED PFSH: Medical History Hypertension PVD (peripheral vascular disease) Family History Mother Cancer Father Cancer Sister Cancer Social History Smoking and tobacco status: former smoker Alcohol intake: never Substance/Drug Use: never Course Vital Signs: Vital signs: Vital Signs Temperature 99.9 F H 03/15/23 20:51 Pulse Rate 103 H 03/16/23 05:26 Respiratory Rate 13 03/16/23 05:26 Blood Pressure 125/69 03/16/23 05:26 Pulse Oximetry 100 03/16/23 05:26 Oxygen Delivery Me thod Room Air 03/16/23 04:13 MDM - Abdominal Pain Medical Decision Making This patient was originally seen by Mrs. Andrew PA-C. I agree with her history, evaluation, and initial management. I have examined this patient personally, and completed the ingram elements of the evaluation and management myself. Concerning right upper quadrant pain in a patient with recent vascular surgery. On imaging, he does not appear to be experiencing any complication from vascular surgery whatsoever. What is present is an enlarging pancreatic head mass, and increase in liver enzymes from prior. His bilirubin is now 1.4, and was 0.4 2 weeks ago. He had ductal dilatation on his CT scan as well. MRCP was completed. It does not show significant ductal dilatation, but does show the pa ncreatic head mass. Lipase is 56.I spoke with gastroenterology at [facility]. Recommendations are not to transfer at this point, but to repeat bilirubin in a couple of days, and schedule for an outpatient EUS this coming week. They're going to have their production scheduler call the patient. Information was provided to the patient as well for follow up. He was counseled on his diagnosis, the need for follow up, etcetera. For pain control, he has a small dose of oxycodone at home that does not seem to be helping. We will prescribe immediate release morphine at this point for pain control. He knows to return for worsening problems. Lab Data 03/15/23 20:36 03/15/23 20:36 Labs/Radiology: Radiology Impressions Chest/Abdomen/Pelvis CTA 03/15/23 20:48 IMPRESSION: 1. Status post recent right subclavian femoral and bifemoral bypass graft are patent. 2. Stable status post surgical changes of aortofemoral bypass graft with occlusion noted at the origin as well as both bypass limbs, no change. The chip[place]cree aorta is also occluded, no change. Small fluid collection noted along the inferior margin of the bypass graft at L5, no change allowing for differences in technique. 3. Redemonstration of gallbladder distention with intrahepatic and extrahepatic biliary ductal dilation. 4. Increased size in the cystic mass the pancreatic head measuring 3.5 x 3.6 cm probably representing a pseudocyst. There is mild peripancreatic stranding, correlate with pancreatic enzymes to exclude acute pancreatitis. Follow-up after treatment is recommended to document resolution and exclude cystic neoplasm. ADDENDUM: 03/15/23 2254 Correction to section on ( reproductive): Enlarged prostate gland, correlate with PSA. Cholangiopancreatography MRI 03/16/23 12:01 IMPRESSION: Pancreatic head mass consistent with a probable primary carcinoma. Atrophic left kidney. Gynecomastia. Surgical incision along the anterior abdominal wall. No evidence of abscess. Laboratory Results WBC 11.5 10^3/uL (4.0-10.0) H 03/15/23 20:36 RBC 2.98 10^6/uL (4.1-5.3) L 03/15/23 20:36 Hgb 8.7 g/dL (11.7-16.6) L 03/15/23 20:36 Hct 27.1 % (42.0-52.0) L 03/15/23 20:36 MCV 90.9 fl (80-94) 03/15/23 20:36 MCH 29.2 pg (28.0-34.0) 03/15/23 20:36 MCHC 32.1 g/dL (30.0-36.0) 03/15/23 20:36 RDW 13.0 % (12.1-15.1) 03/15/23 20:36 Plt Count 158 10^3/cmm (130-400) 03/15/23 20:36 MPV 11.1 fL (7.4-10.4) H 03/15/23 20:36 Neut % (Auto) 77.5 % 03/15/23 20:36 Lymph % (Auto) 9.6 % 03/15/23 20:36 [place] % (Auto) 11.9 % 03/15/23 20:36 Eos % (Auto) 0.5 % 03/15/23 20:36 Baso % (Auto) 0.2 % 03/15/23 20:36 Neut # (Auto) 8.89 10^3/uL (1.8-7.7) H 03/15/23 20:36 Lymph # (Auto) 1.1 10^3/uL (0.8-4.8) 03/15/23 20:36 [place] # (Auto) 1.4 10^3/uL (0.2-0.9) H 03/15/23 20:36 Eos # (Auto) 0.1 10^3/uL (0.0-0.8) 03/15/23 20:36 Baso # (Auto) 0.0 10^3/uL (0.0-0.1) 03/15/23 20:36 Nucleated RBC % (auto) 0 % 03/15/23 20:36 Nucleated RBCs # 0.0 /100WBC 03/15/23 20:36 Sodium 130 mmol/L (136-145) L 03/15/23 20:36 Potassium 4.6 mmol/L (3.5-5.1) 03/15/23 20:36 Chloride 95 mmol/L (98-107) L 03/15/23 20:36 Carbon Dioxide 22 mmol/L (22-29) 03/15/23 20:36 Anion Gap 17.6 (5-19) 03/15/23 20:36 BUN 23 mg/dL (8-23) 03/15/23 20:36 Creatinine 1.2 mg/dL (0.7-1.2) 03/15/23 20:36 GFR Calculation 60.0 mL/min (90-130) L 03/15/23 20:36 Glucose 164 mg/dL (65-115) H 03/15/23 20:36 Calculated Osmolality 277 mOsm/kg (285-295) L 03/15/23 20:36 Lactic Acid 2.2 mmol/L (0.5-2.2) 03/15/23 20:36 Lactic Acid (Sepsis) 1.7 mmol/L (0.5-2.2) 03/15/23 22:40 Calcium 9.0 mg/dL (8.5-10.5) 03/15/23 20:36 Total Bilirubin 1.4 mg/dL (0.15-1.2) H 03/15/23 20:36 AST 166 U/L (0-40) H 03/15/23 20:36 ALT 84 U/L (0-41) H 03/15/23 20:36 Alkaline Phosphatase 570 U/L (40-130) H 03/15/23 20:36 Total Protein 6.9 g/dL (6.6-8.7) 03/15/23 20:36 Albumin 3.3 g/dL (3.5-5.2) L 03/15/23 20:36 Globulin 3.6 g/dL (1.3-4.6) 03/15/23 20:36 Lipase 56 U/L (13-60) 03/15/23 20:36 Urine Color Yellow (Yellow) 03/15/23 21:15 Urine Appearance Clear (CLEAR) 03/15/23 21:15 Urine pH 7 (5-7) 03/15/23 21:15 Ur Specific [place] 1.005 (1.005-1.030) 03/15/23 21:15 Urine Protein Neg (Negative) 03/15/23 21:15 Urine Glucose (UA) Norm (Normal) 03/15/23 21:15 Urine Ketones Negative (Negative) 03/15/23 21:15 Urine Blood Neg (Negative) 03/15/23 21:15 Urine Nitrate Negative (Negative) 03/15/23 21:15 Urine Bilirubin Neg (Negative) 03/15/23 21:15 Urine Urobilinogen 1 mg/dL (Negative) H 03/15/23 21:15 Ur Leukocyte Esterase Negative (Negative) 03/15/23 21:15 Discharge Plan Discharge Patient Disposition: Home Clinical Impression: Cystic mass of pancreas, Acquired hyperbilirubinemia Condition: Stable Prescriptions: New morphine 15 mg tablet 15 mg PO Q6H PRN (Reason: pain) Qty: 10 0RF Discontinued oxycodone-acetaminophen 5-325 mg tablet 1 tab PO Q6H No Action cilostazol 50 mg tablet 50 mg PO BID Qty: 180 3RF lisinopril 20 mg tablet 20 mg PO DAILY paroxetine HCl 20 mg tablet 20 mg PO DAILY naproxen 500 mg tablet 500 mg PO DAILY pravastatin 40 mg tablet 40 mg PO DAILY Discharge Orders: Discharge ED (Routine); Ordered 03/16/23 Ordered By: Renato Urbano Referrals: Joni Villagomez MD [Primary Care Provider] - 1-3 days Patient Instructions: Biliary Colic (ED), Jaundice (ED), Opioid Safety, Pain Management Activity Restrictions/Additional Instructions: A medical case manager from the [facility] will call you regarding a follow- up appointment this coming week. If you do not hear from them, give them a call. Their number is as follows: [facility] * [facility], [address],?[place],?[place]?[address] * Phone:?[phone] tel:[phone] * Fax:?[phone] tel:[phone] You should have your liver enzymes rechecked as an outpatient on Saturday to make sure they are not increasing. Return for fever greater than 100, vomiting liquids or medications, worsening pain despite treatment, yellowing of the eyes, any other concerning symptoms. Coding Level of Care Code ED Waste Minimization Technician for Felipa Nugent
[2023-03-15 20:48] LABS: Basophils % 0.2 %; Eosinophils # 0.1 10^3/uL (0.0-0.8); Eosinophils % 0.5 %; Hematocrit 27.1 % (42.0-52.0); Hemoglobin 8.7 g/dL (11.7-16.6); Lymphocytes # 1.1 10^3/uL (0.8-4.8); Lymphocytes % 9.6 %; Mean Corpuscular HGB Conc 32.1 g/dL (30.0-36.0); Mean Corpuscular Hemoglobin 29.2 pg (28.0-34.0); Mean Corpuscular Volume 90.9 fl (80-94); Mean Platelet Volume 11.1 fL (7.4-10.4); Monocytes # 1.4 10^3/uL (0.2-0.9); Monocytes % 11.9 %; Neutrophils # 8.89 10^3/uL (1.8-7.7); Neutrophils % 77.5 %; Nucleated Red Blood Cells % 0 %; Platelet Count 158 10^3/cmm (130-400); Red Blood Count 2.98 10^6/uL (4.1-5.3); White Blood Count 11.5 10^3/uL (4.0-10.0)
--- NOTE | 2023-03-15 20:48 | CTR_ITS ---
PROCEDURE INFORMATION: Exam: CTA Chest With Contrast CTA Abdomen and Pelvis With Contrast Exam date and time: 03/15/2023 9:15 PM Age: 67 years old Clinical indication: Other: N/a; Shortness of breath and hypotension; Abdominal pain; Generalized; Prior surgery; Surgery date: <1 month; Surgery type: RT subclavian to fem-fem bypass performed on 03/10/2023. Bilat viola; Patient HX: C/O SOB with diffuse abd pain and constipation. Hypotensive on monitor. RT subclavian to fem-fem bypass performed on 03/10/2023. Known pancreatic pseudocyst vs mass. ; Additional info: Recent subclavian-femoral bypass. Abdominal pain TECHNIQUE: Imaging protocol: Computed tomographic angiography of the chest with contrast. Exam focused on the arteries. Computed tomographic angiography of the abdomen and pelvis with contrast. Exam focused on the arteries. 3D rendering (Not supervised by radiologist): MIP and/or 3D reconstructed images were created by the technologist. Radiation optimization: All CT scans at this facility use at least one of these dose optimization techniques: automated exposure control; mA and/or kV adjustment per patient size (includes targeted exams where dose is matched to clinical indication); or iterative reconstruction. Contrast material: OMNI 350; Contrast volume: 100 ml; Contrast route: INTRAVENOUS (IV); REPORTING DATA: Count of CT and Cardiac NM exams in prior 12 months: This patient has received [address] and 0 known cardiac nuclear medicine studies in the 12 months prior to the current study. COMPARISON: CT angio abd aorta runof [id number] 03/01/2023 2:39 PM RADIATION DOSE METRICS: Total DLP (mGy-cm): 935.03 FINDINGS: VASCULATURE: Pulmonary arteries: No pulmonary emboli. Aorta: Stable status post surgical changes of aortofemoral bypass graft with occlusion noted at the origin as well as both bypass limbs, no change. The hughes aorta is also occluded, no change. Other: Status post recent right subclavian femoral and bifemoral bypass graft are patent. Celiac trunk and mesenteric arteries: The superior mesenteric artery is patent. The celiac artery is patent. Renal arteries: Stable appearance of the renal arteries. Right iliac arteries: See above. Left iliac arteries: See above. Veins: Limited evaluation of the superior mesenteric vein and main portal vein due to the phase of enhancement. No delayed images were obtained. CHEST: Lungs: Unremarkable. No consolidation. No masses. Pleural spaces: Unremarkable. No pneumothorax. No pleural effusion. Heart: Unremarkable. No cardiomegaly. No pericardial effusion. ABDOMEN AND PELVIS: Liver: Redemonstration of gallbladder distention with intrahepatic and extrahepatic biliary ductal dilation. Gallbladder and bile ducts: See Liver finding. Pancreas: Increased size in the cystic mass the pancreatic head measuring 3.5 x 3.6 cm probably representing a pseudocyst. There is mild peripancreatic stranding, correlate with pancreatic enzymes to exclude acute pancreatitis. Calcifications noted in the pancreas likely sequela of chronic pancreatitis. Spleen: Small splenule noted in the left upper quadrant. Adrenal glands: Unremarkable. No mass. Kidneys and ureters: Atrophic left kidney. No hydronephrosis of the right kidney. Stomach and bowel: No dilated bowel loops. No high-grade obstruction. Appendix: The appendix is not identified. However, there are no right lower quadrant inflammatory changes. Intraperitoneal space: Unremarkable. No free air. No significant fluid collection. Urinary bladder: Unremarkable. No mass. Reproductive: Unremarkable as visualized. Lymph nodes: Slightly prominent upper abdominal mesenteric lymph nodes, no change. Bones/joints: Small fluid collection noted along the inferior margin of the bypass graft at L5, no change allowing for differences in technique. Bilateral hip prostheses noted. Soft tissues: Unremarkable. CT/CT [facility] [id number] IMPRESSION: 1. Status post recent right subclavian femoral and bifemoral bypass graft are patent. 2. Stable status post surgical changes of aortofemoral bypass graft with occlusion noted at the origin as well as both bypass limbs, no change. The hughes aorta is also occluded, no change. Small fluid collection noted along the inferior margin of the bypass graft at L5, no change allowing for differences in technique. 3. Redemonstration of gallbladder distention with intrahepatic and extrahepatic biliary ductal dilation. 4. Increased size in the cystic mass the pancreatic head measuring 3.5 x 3.6 cm probably representing a pseudocyst. There is mild peripancreatic stranding, correlate with pancreatic enzymes to exclude acute pancreatitis. Follow-up after treatment is recommended to document resolution and exclude cystic neoplasm.
[2023-03-15] MEDS: sodium chloride 0.9% 1,000 ML 999 ML IV (20:52)
[2023-03-15 21:05] LABS: Alanine Aminotransferase 84 U/L (0-41); Albumin Level 3.3 g/dL (3.5-5.2); Alkaline Phosphatase 570 U/L (40-130); Anion Gap 17.6 (5-19); Aspartate Amino Transferase 166 U/L (0-40); Blood Urea Nitrogen 23 mg/dL (8-23); Carbon Dioxide 22 mmol/L (22-29); Chloride 95 mmol/L (98-107); Globulin 3.6 g/dL (1.3-4.6); Glucose 164 mg/dL (65-115); Lipase 56 U/L (13-60); Osmolality Calculated 277 mOsm/kg (285-295); Potassium 4.6 mmol/L (3.5-5.1); Sodium 130 mmol/L (136-145); Total Bilirubin 1.4 mg/dL (0.15-1.2); Total Protein 6.9 g/dL (6.6-8.7)
[2023-03-15 21:06] LABS: Lactic Sepsis W/Reflex 2.2 mmol/L (0.5-2.2)
[2023-03-15 21:15] LABS: Add Urine Microscopic? NO
[2023-03-15 21:17] LABS: Urine Appearance Clear (CLEAR); Urine Color Yellow (Yellow); pH Urine 7 (5-7)
[2023-03-15 21:18] LABS: Bilirubin Urine Neg (Negative); Blood Urine Neg (Negative); Charge for UA Resulting for Rev; Glucose Urine UA Norm (Normal); Ketones Urine Negative (Negative); Leukocyte Esterase Urine Negative (Negative); Nitrate Urine Negative (Negative); Protein Urine Neg (Negative); Specific Gravity, Urine 1.005 (1.005-1.030); Urobilinogen Urine 1 mg/dL (Negative)
[2023-03-15] MEDS: iohexol 350 mg/mL 500 mL Btl (per mL) IV (21:28)
[2023-03-15 22:33] LABS: Reflex Lactate Order REFLEX LACTIC ORDERD
[2023-03-15 23:04] LABS: Lactic Acid level (Lactate) 1.7 mmol/L (0.5-2.2)
[2023-03-15] MEDS: ondansetron 2 mg/ML SDV 2 mL 4 MG IVP (23:52)
[2023-03-15] MEDS: morphine 4 mg/mL SDV 1 mL IVP (23:56)
[2023-03-15] MEDS: piperacillin-tazobactam 3.375 GM in sodium chloride 0.9% (plus) 50 ML IV (23:58)
[2023-03-16 01:50] VITALS: BP 129/59; PULSE 117; RESP 20; O2SAT 95
[2023-03-16 04:13] VITALS: BP 114/59; PULSE 106; RESP 15; O2SAT 98
[2023-03-16 05:26] VITALS: BP 125/69; PULSE 103; RESP 13; O2SAT 100
--- NOTE | 2023-03-16 12:01 | MRR_ITS ---
PROCEDURE INFORMATION: Exam: MR Abdomen Without Contrast Exam date and time: 03/16/2023 12:32 AM Age: 67 years old Clinical indication: Abdominal pain; Generalized; Prior surgery; Surgery date: <1 month; Surgery type: Abd mesh; Additional info: Fever, dilated bile ducts, elevated liver enzymes TECHNIQUE: Imaging protocol: Magnetic resonance imaging of the abdomen without contrast. COMPARISON: CT ang ches abdpel [id number] 03/15/2023 9:15 PM FINDINGS: Liver: No mass. Gallbladder and bile ducts: Unremarkable. No stones. No ductal dilation. Pancreas: Again seen is a 4.0 cm mass in the head of the pancreas consistent with a probable primary pancreatic carcinoma. Spleen: Unremarkable. No splenomegaly. Adrenal glands: Unremarkable. No mass. Kidneys and ureters: The left kidney is markedly atrophic. Stomach and bowel: Visualized stomach and intestines are unremarkable. Intraperitoneal space: No free fluid. Vasculature: No abdominal aortic aneurysm. Bones/joints: Unremarkable. Soft tissues: There is bilateral gynecomastia. There is a surgical incision along the midline anterior abdominal wall. MR/MR MRCP [id number] IMPRESSION: Pancreatic head mass consistent with a probable primary carcinoma. Atrophic left kidney. Gynecomastia. Surgical incision along the anterior abdominal wall. No evidence of abscess.
== END 2023-03-16 05:15 | disposition home or self-care (01) ==
PROVIDERS: Physician Assistant; Emergency Provider Emergency Medicine; PCP Family Medicine
DX: K86.2 Cyst of pancreas (principal); E80.6 Other disorders of bilirubin metabolism; I10 Essential (primary) hypertension; Z87.891 Personal history of nicotine dependence
CPT/HCPCS: 36415; 71275; 74174; 74181; 80053; 81003; 83605; 83690; 85025; 96365; 96375; 99285; J2270; J2405; J2543; J7030; Q9967

== ENCOUNTER 2024-07-16 14:26 | Outpatient (CLI) | payer MEDICAID, OTHER, SELFPAY ==
--- NOTE | 2024-07-16 14:29 | US_ITS ---
WS: [id number] BILATERAL 3D TOMOSYNTHESIS DIGITAL DIAGNOSTIC MAMMOGRAPHY WITH CAD CLINICAL INFORMATION: PAIN LEFT BREAST HISTORY: LEFT breast pain COMPARISON: None. TECHNIQUE: Bilateral CC, MLO, and ML views. FINDINGS: Scattered fibroglandular densities bilaterally. Dense subareolar LEFT breast tissue. Ultrasound of th is area is pending. Few incidental punctate calcifications RIGHT breast. ULTRASOUND BREAST LEFT TECHNIQUE: Ultrasound left breast focused area of concern. CLINICAL INFORMATION: PAIN LEFT BREAST COMPARISON: None. FINDINGS: Ultrasound subareolar LEFT breast. Dense underlying parenchymal tissue compatible with gynecomastia. No cystic or solid lesions to target for biopsy. Findings have a benign appearance. US/US breast LT limited* [id number] IMPRESSION: DENSITY: There are scattered areas of fibroglandular density. BI-RADS: 2 - Benign. FOLLOW UP: See Report
--- NOTE | 2024-07-16 15:28 | MM_ITS ---
WS: [id number] BILATERAL 3D TOMOSYNTHESIS DIGITAL DIAGNOSTIC MAMMOGRAPHY WITH CAD CLINICAL INFORMATION: PAIN LEFT BREAST HISTORY: LEFT breast pain COMPARISON: None. TECHNIQUE: Bilateral CC, MLO, and ML views. FINDINGS: Scattered fibroglandular densities bilaterally. Dense subareolar LEFT breast tissue. Ultrasound of th is area is pending. Few incidental punctate calcifications RIGHT breast. ULTRASOUND BREAST LEFT TECHNIQUE: Ultrasound left breast focused area of concern. CLINICAL INFORMATION: PAIN LEFT BREAST COMPARISON: None. FINDINGS: Ultrasound subareolar LEFT breast. Dense underlying parenchymal tissue compatible with gynecomastia. No cystic or solid lesions to target for biopsy. Findings have a benign appearance. MM/MM diag BI tomosynthesis [id number] IMPRESSION: DENSITY: There are scattered areas of fibroglandular density. BI-RADS: 2 - Benign. FOLLOW UP: See Report
== END 2024-07-16 14:27 | disposition home or self-care (01) ==
PROVIDERS: PCP Family Medicine; Visit Provider Physician Assistant
DX: N62 Hypertrophy of breast (principal); N64.4 Mastodynia
CPT/HCPCS: 76642; 77062; G0279